=== PATIENT | male | born 1990 | race Caucasian/White ===

== ENCOUNTER 2017-01-17 18:33 | Day surgery (SDC) | payer OTHER ==
--- NOTE | ~2017-01-17 | OR ---
PATIENT'S NAME: ERNST KAUFFMAN [facility] AGE: 27 Y [address] ROOM: [place] [address] LOCATION: [facility] ADMIT DATE: 01/17/2017 OR/Procedure Report DISCHARGE DATE: 01/17/2017 FAMILY PHYSICIAN: PHYSICIAN, NO ATTENDING PHYSICIAN: Bob Lewis SURGEON: Bob Lewis DO MANAGER STORE: Staff. DATE OF PROCEDURE: 01/17/2017 PREOPERATIVE DIAGNOSIS: Right index finger open fracture. POSTOPERATIVE DIAGNOSIS: Right index finger open fracture with central slip extensor tendon avulsion. PROCEDURE PERFORMED: Right index finger debridement to bone. ANESTHESIA: IV regional with sedation. ESTIMATED BLOOD LOSS: Less than 10 mL. TOURNIQUET TIME: Less than 30 minutes at 250 mmHg. COMPLICATIONS: None. DISPOSITION: Stable to recovery room. JUSTIFICATION FOR PROCEDURE: Ernst Kauffman is a 26-year-old man with a history of an accidental self-inflicted hammer injury to his right index finger. The patient's history, physical exam, and radiologic workup were consistent with an open fracture of the right middle phalanx dorsal base at the insertion point of the central slip. The patient was counseled as to treatment options, risks versus benefits, and necessary afterward care. He gave informed consent to proceed with a right index finger debridement, possible repair of fracture, and any indicated procedures. PROCEDURE IN DETAIL: The patient was properly identified both verbally and by name tag. He was taken to the operating suite, placed on the operating table in the supine position. The anesthesiologist administered an IV regional anesthetic in the right upper extremity and IV sedation. Once adequate anesthesia was obtained, the right upper extremity was prepped and draped in the usual sterile fashion. The extremity was exsanguinated with an Esmarch bandage and the tourniquet inflated to the level of the arm to 250 mmHg. The patient's traumatic wound consisted of a distal-based flap centered over the proximal interphalangeal joint dorsally. The wound margins had some PATIENT'S NAME: ERNST KAUFFMAN [facility] AGE: 27 Y [address] ROOM: [place] [address] LOCATION: [facility] ADMIT DATE: 01/17/2017 OR/Procedure Report DISCHARGE DATE: 01/17/2017 FAMILY PHYSICIAN: PHYSICIAN, NO ATTENDING PHYSICIAN: Bob Lewis gross contamination of inorganic material and the contamination plane extended down to the bone. The radial dorsal lip of the middle phalanx was comminuted and the central slip had avulsed with this injury. The lateral bands were intact. The joint surface showed no gross contamination, but there was some damage to the cartilage on the middle phalanx side of the joint. The wound was copiously irrigated with saline after meticulous debridement taking all particulate matter out that was visualized. The joint was irrigated from inside-out with an angiocatheter and normal saline, and the soft tissues were then inspected once again as was the bone. There was no further visible organic or inorganic material under loupe magnification. A decision was made to perform an extensor tendon repair at a later time when we had the appropriate suture anchors. The anchors available here at [facility] are not well suited for traumatized cancellous bone and so decision was made to perform the tendon repair at a later date when we could get the appropriate wrapping with some more suitable suture anchors. Given the fact that the patient's wound was fairly significantly contaminated, it was also felt that a second trip to the operating room to debride it would be more prudent in preventing infection rather than jumping into repair in the face of a heavily contaminated wound. Therefore, the wound was copiously irrigated with saline. Tourniquet was let down after less than 1 hour and good capillary refill was noted distally. There was no arterial bleeding noted. Hemostasis was obtained with minimal bipolar electrocautery and direct pressure. The patient's traumatic wound was loosely approximated with 5-0 nylon suture in an interrupted mattress stitch fashion leaving the sufficient open areas to allow for drainage. The patient was aroused from IV sedation and taken to the recovery room in good condition. Immediate postoperative examination in the recovery room showed good capillary refill distally in all digits. Light touch sensation and motor function distally were equivocal due to a preoperatively placed digital blockade. DO LINDA GUTIERREZ/modl /[id number] d: 01/21/17 0152 t: 02/01/17 2140, OPERATIVE SUMMARY
--- NOTE | ~2017-01-17 | ER ---
PATIENT'S NAME: ROBYN HANSEN [facility] AGE: 27 Y [address] ROOM: [place] [id number] LOCATION: [facility] [place] ADMIT DATE: 01/17/2017 ER/Outpatient Report DISCHARGE DATE: 01/17/2017 FAMILY PHYSICIAN: PHYSICIAN, NO ATTENDING PHYSICIAN: Bob Lewis Arrival Time: 1840 hours. Encounter Time: 1845 hours. SUBJECTIVE: Right index finger pain/laceration. HISTORY OF PRESENT ILLNESS: The patient is a pleasant 26-year-old male, left-hand dominant individual, who was working this afternoon with a ball-peen hammer, and accidentally struck his right index finger along the radial aspect at the PIP. He has an L-shaped laceration roughly 1-1/2 to 2 cm on the dorsum of the PIP knuckle for the index finger on right hand. Denies any numbness or tingling. He was seen initially at a local urgent care with x-rays performed in-house at that site. He was found to have an avulsion injury along the proximal aspect of the intermediate phalangeal of the right index finger. He was sent to the emergency department as this is an open fracture for referral to Orthopedics. REVIEW OF SYSTEMS: A 10-point review of systems was performed by me for all systems and negative unless otherwise stated in the HPI. PAST MEDICAL HISTORY: Denied by the patient. PAST SURGICAL HISTORY: Involves a left-hand metal plate and he did not specify a year. He also had his lymph nodes removed as a child. MEDICATIONS: No medications. ALLERGIES: NO KNOWN DRUG ALLERGIES. SOCIAL HISTORY: The patient is a 1 pack-a-day smoker currently. OBJECTIVE: PATIENT'S NAME: ROBYN HANSEN [facility] AGE: 27 Y [address] ROOM: [place], [place] [address] LOCATION: [facility] [place] ADMIT DATE: 01/17/2017 ER/Outpatient Report DISCHARGE DATE: 01/17/2017 FAMILY PHYSICIAN: PHYSICIAN, NO ATTENDING PHYSICIAN: Bob Lewis VITAL SIGNS: Height is 6 feet 1 inch, weight of 74.1 kg, blood pressure 127/78, pulse 69, respirations 18 per minute, temperature 98.7 taken tympanically, SpO2 at 97% on room air. Current pain 0/10. GENERAL: The patient is well-developed, well-nourished, 26-year-old male, in no acute distress. He is calm. Alert and oriented to person, place, and time. HEENT: Head is atraumatic and normocephalic. Eyes: Conjunctivae clear bilaterally and no discharge. Pupils are PERRLA bilaterally. EOMFI bilaterally. No nystagmus. NECK: Supple and without lymphadenopathy. Trachea midline. No JVD. LUNGS: Clear to auscultation bilaterally. No wheezes, crackles, rhonchi, or stridor. Normal respiratory effort. HEART: Regular rate and rhythm. No S3, S4, or extra sounds. EXTREMITIES: Show a 1.5 cm L-shaped laceration present over the dorsum of the PIP of the right index finger. No distal numbness or tingling. Cap refill is less than 2 seconds at the nail bed distal to injury. Full range of motion of the index finger. No clubbing, cyanosis, but there is a small amount of edema. No obvious angulation of the digits. RADIOLOGY: Three images were received on the patient that were performed at the local urgent care. One image shows an avulsion fracture present at the proximal aspect of the intermediate phalanges of the right index finger. Open fracture. Acute. Discussed results with the patient and with Dr. Lewis. ASSESSMENT: Right index finger avulsion fracture, mildly displaced at intermediate phalanges of his right index finger. Initial visit. PLAN: Surgical referral to Orthopedics for surgical washout and ongoing care as indicated for open avulsion fracture. Likely this will need their expertise to maintain full range of motion and strength of the digit. Location of the fracture will likely interfere with insertion sites for extensor tendon. Return to Dr. Lewis who saw the patient promptly in the emergency department ENT room. We are thankful for his assistance in this matter. Take all medications as prescribed. Discussed med risks, side effects, and benefits in detail with the patient. Get plenty of rest and liquids. Take Tylenol or ibuprofen as directed for fever or discomfort unless allergic, asthmatic, or aspirin sensitive. Return to the emergency department or primary care provider if symptoms persist or worsen. Ongoing treatment as per Dr. Lewis's recommendation. PATIENT'S NAME: ROBYN HANSEN [facility] AGE: 27 Y [address] ROOM: [place] [address] LOCATION: [facility] [place] ADMIT DATE: 01/17/2017 ER/Outpatient Report DISCHARGE DATE: 01/17/2017 FAMILY PHYSICIAN: LO PINK ATTENDING PHYSICIAN: Bob Lewis RANCHO FERNANDEZ PA-C FOR MD NANYC MOSLEY/modl /[id number] d: 01/18/17 0335 t: 01/29/17 1530, OUTPATIENT REPORT
[2017-01-17] MEDS ORDERED: CIPRO500 MG (22:44)
[2017-01-17] MEDS ORDERED: PERCOCET 5-3251 EACH PO (22:44)
== END 2017-01-17 23:13 | disposition disaster alternative care site (69) ==
LOC: GACC 18:33 → GSDC 19:51
PROC: 0PBT0ZZ Excision of Right Finger Phalanx, Open Approach (ICD-10-PCS; principal; 2017-01-17)
DX: S62.620B Displaced fracture of middle phalanx of right index finger, initial encounter for open fracture (principal); S66.390A Other injury of extensor muscle, fascia and tendon of right index finger at wrist and hand level, initial encounter; W22.8XXA Striking against or struck by other objects, initial encounter; F17.210 Nicotine dependence, cigarettes, uncomplicated; Z98.890 Other specified postprocedural states
CPT/HCPCS: J0696; J7040; J7120